=== PATIENT | male | born 1980 | race Caucasian/White ===

== ENCOUNTER → 2021-08-11 | Outpatient (CLI) | payer BC ==
[~2021-08-11] MED LIST: FLUTICASON0.05 MG/AC NS; HYDROXYZINE HCL25 M1 PO; LANSOPRAZOLE30 M2 PO; NORCO 325 MG-51 TA1 PO; RT ALBUTEROL CC18 GM IH
== END ==
LOC: RAD 11:43
DX: M25.532 Pain in left wrist (principal); M25.432 Effusion, left wrist

== ENCOUNTER 2021-08-17 19:44 | Emergency (ER) | payer BC ==
[~2021-08-17] VITALS: Ht 177.8 cm; Wt 72.6 kg
[2021-08-17 19:59] VITALS: BP 129/74
[2021-08-17] MEDS ORDERED: FLUTICASON0.05 MG/AC NS (20:08)
[2021-08-17] MEDS ORDERED: LANSOPRAZOLE30 M2 PO (20:08)
[2021-08-17] MEDS ORDERED: HYDROXYZINE HCL25 M1 PO (20:09)
[2021-08-17] MEDS ORDERED: RT ALBUTEROL CC18 GM IH (20:10)
[2021-08-17 21:29] LABS: ALBUMIN 4.5 g/dL (3.5-5.0)
[2021-08-17 21:30] LABS: POTASSIUM 3.8 mmol/L (3.5-5.1)
[2021-08-17 21:31] LABS: BASO # 0.03 K/mm3 (0.02-0.10); CALCIUM 9.8 mg/dL (8.3-10.5); EOS # 0.21 K/mm3 (0.04-0.40); EOS % 2.2 % (0.0-4.0); HEMATOCRIT 41.8 % (42.0-52.0); HEMOGLOBIN 14.2 g/dL (13.5-18.0); MEAN CELL VOLUME 85 fl (78-100); MEAN CORPUSCULAR HEMOGLOBIN 29 pg (27-31); MEAN CORPUSCULAR HGB CONC 34 g/dL (33-37); MEAN PLATELET VOLUME 10.6 fl (7.4-10.4); MONO # 0.99 K/mm3 (0.20-0.80); NEU # 6.21 K/mm3 (1.40-6.50); PLATELET COUNT 222 K/mm3 (130-400); RED BLOOD COUNT 4.92 M/mm3 (4.20-5.60); WHITE BLOOD COUNT 9.8 K/mm3 (4.8-10.8)
[2021-08-17 21:32] LABS: TOTAL PROTEIN 7.4 g/dL (6.4-8.3)
[2021-08-17 21:34] LABS: TOTAL BILIRUBIN 0.2 mg/dL (0.2-1.2)
[2021-08-17] MEDS ORDERED: NORCO 325 MG-51 TA1 PO (22:12)
== END 2021-08-17 22:56 | disposition home or self-care (01) ==
LOC: ED 19:44
PROVIDERS: Physician Assistant
DX: S42.292A Other displaced fracture of upper end of left humerus, initial encounter for closed fracture (principal); S20.312A Abrasion of left front wall of thorax, initial encounter; V29.59XA Motorcycle passenger injured in collision with other motor vehicles in traffic accident, initial encounter; Y93.55 Activity, bike riding; Z87.891 Personal history of nicotine dependence
CPT/HCPCS: A4565; J2270

== ENCOUNTER → 2021-10-05 | Outpatient (CLI) | payer BC | LOC: RAD 08:30 | DX: M25.511 Pain in right shoulder (principal) ==